=== PATIENT | female | born 1960 | race Caucasian/White ===

== ENCOUNTER → 2021-12-22 15:59 | Outpatient (BNVA) | payer SELFPAY | PROVIDERS: PCP Nurse Practitioner Family; Referring Provider Nurse Practitioner Family; Visit Provider Specialist | DX: S82.009A Unspecified fracture of unspecified patella, initial encounter for closed fracture (principal); X58.XXXA Exposure to other specified factors, initial encounter | CPT/HCPCS: 73562 ==

== ENCOUNTER 2021-12-22 16:23 | Outpatient (CLI) | payer SELFPAY | END 2021-12-22 16:24 | disposition home or self-care (01) | LOC: SPT 16:23 | PROVIDERS: PCP Nurse Practitioner Family; Visit Provider Specialist | DX: Z46.89 Encounter for fitting and adjustment of other specified devices (principal); S82.091D Other fracture of right patella, subsequent encounter for closed fracture with routine healing; X58.XXXD Exposure to other specified factors, subsequent encounter | CPT/HCPCS: 97760; L1832 ==

== ENCOUNTER → 2022-01-05 14:33 | Outpatient (BNVA) | payer SELFPAY | PROVIDERS: PCP Nurse Practitioner Family; Visit Provider Specialist | DX: S82.001A Unspecified fracture of right patella, initial encounter for closed fracture (principal); X58.XXXA Exposure to other specified factors, initial encounter | CPT/HCPCS: 73562; 99024 ==

== ENCOUNTER → 2022-01-19 14:22 | Outpatient (BNVA) | payer OTHER, SELFPAY | PROVIDERS: PCP Nurse Practitioner Family; Visit Provider Specialist | DX: S82.044D Nondisplaced comminuted fracture of right patella, subsequent encounter for closed fracture with routine healing (principal); W01.0XXD Fall on same level from slipping, tripping and stumbling without subsequent striking against object, subsequent encounter | CPT/HCPCS: 73562 ==